=== PATIENT | male | born 1975 | race Caucasian/White ===

== ENCOUNTER → 2023-12-06 07:44 | Outpatient (REF) | payer BC, SELFPAY | LOC: HWRAD 07:44 | PROVIDERS: ATTENDING PHYSICIAN Physician Assistant Medical | DX: E01.0 Iodine-deficiency related diffuse (endemic) goiter (principal) | CPT/HCPCS: 76536 ==

== ENCOUNTER 2023-12-20 12:18 | Emergency (ER) | payer BC, SELFPAY ==
[2023-12-20 12:21] VITALS: BP 169/98
--- NOTE | 2023-12-20 12:56 | ED.GENMED ---
History of Present Illness
<Gregory Saldana DO - Last Filed: 12/24/23 06:31>
General
Chief Complaint: Chest Pain
Source: patient and spouse
Exam Limitations: none
Time Seen by Provider: 12/20/23 12:42
Nursing documentation reviewed up to this point in time: agreed with
History of Present Illness
History of Present Illness:
48-year-old male sharp right-sided abdominal pain onset yesterday, intermittent, no chest pain or shortness of breath, suffers of hypertension obesity has been on Zepbound lost about 30 pounds seen in urgent care referred here for evaluation no
prior abdominal surgeries still has his gallbladder and appendix,
Past History
<Gregory Saldana, DO - Last Filed: 12/24/23 06:31>
Past History
ED Past Medical History: HTN and Other (obesity-Zebound)
ED Past Surgical History: None; Negative Appendectomy, Bowel resection or Cholecystectomy
Social History
Tobacco: Non-smoker
Alcohol: None
Drug: None
Personal:
Living: with family
Employment: Employed ([employer])
Review of Systems
<Gregory Saldana, DO - Last Filed: 12/24/23 06:31>
Review of Systems
All Other Systems: Not applicable
Constitutional: Denies fever or fatigue
EENT: Reports no symptoms
Respiratory: Reports no symptoms; Denies cough or trouble breathing
Cardiac: Denies chest pain or palpitations
ABD/GI: Reports abdominal pain
: Reports no symptoms
Musculoskeletal: Reports no symptoms
Skin: Reports no symptoms
Phy Exam
<Gregory Saldana DO - Last Filed: 12/24/23 06:31>
Physical Exam
Physical Exam:
Physical Exam
General: no apparent distress, not acutely ill
Neck: No jaundice
Heart: s1/s2 regular rate and rhythm, no murmur. equal radial pulses.
Lungs: no acute respiratory distress. clear bilaterally
Abdomen: obese tender in the right upper abdomen
Neuro: alert and oriented. no focal neurological deficits
Skin: no rash
Psychiatric: well kept. interactive and cooperative
Extremities: no edema. no calf tenderness.
Scores
<Gregory Saldana, DO - Last Filed: 12/24/23 06:31>
Heart Score for Chest Pain Patients
STEMI patient?: Not applicable
History: Slightly or Non-Suspicious
ECG: Normal
Age: >45 - <65 years
Risk Factors: No Risk Factors
Troponin: </= Normal Limit
Heart Score for Chest Pain Patients: 1
Heart Score Risk: 2.5% MACE over next 6 weeks
Course
<Gregory Saldana, DO - Last Filed: 12/24/23 06:31>
Orders/Labs/Results
Orders:
Orders
12/20/23 12:20
EKG [Electrocardiogram (*1)] Urgent
Reason for Study: Chest Pain
EKG- Treatment ONCE
12/20/23 12:51
Cardiac Monitoring- Treatment ONCE
IV Insert/Care/Rem.- Treatment PRN
12/20/23 12:52
Ketorolac [Toradol] 30 mg IV NOW STA
CR Chest - 2 Views Urgent
Comment:
Reason For Exam: ruq poaoin
US Abdomen Complete/Upper Urgent
Comment:
Reason For Exam: ruq pain
12/20/23 13:48
Complete Blood Count/With Diff Urgent
Comprehensive Metabolic Panel Urgent
Lipase Urgent
12/20/23 15:21
CT Chest Pe Study Urgent
Comment:
Reason For Exam: right sided pain
Oxycodone/Acetaminophen [Percocet 5/325] 1 tablet PO NOW STA
12/20/23 16:00
Urinalysis Reflex To Culture Urgent
Date Specimen was Collected: 12/20/23
Time Specimen was Collected: 13:53
12/20/23 16:23
Ketorolac [Toradol] 30 mg .ROUTE .STK-MED ONE
12/20/23 20:09
Lidocaine [Lidocaine 4% Patch] 1 patch .ROUTE .STK-MED ONE
12/20/23 20:14
Lidocaine [Lidocaine 4% Patch] 1 patch TOPICAL ONCE ONE
Apply Lidocaine patch(s) to:: RUQ
Abnormal Lab Results
12/20/23
13:48
MPV 10.8 H fL
(7.4-10.4)
Lymphocytes % 18.3 L %
(20.5-51.1)
BUN 21 H mg/dl
(9-20)
12/20/23 13:48
12/20/23 13:48
Vital Signs
Initial and Last Documented VS:
Initial Vital Signs
Temp Pulse Resp BP Pulse Ox
98.1 F 69 16 169/98 96
12/20/23 12:21 12/20/23 12:21 12/20/23 12:21 12/20/23 12:21 12/20/23 12:21
Last Documented Vital Signs
Temp Pulse Resp BP Pulse Ox
98.1 F 64 17 130/73 98
12/20/23 12:21 12/20/23 17:25 12/20/23 17:25 12/20/23 17:25 12/20/23 17:25
<Edgar Strauss MD - Last Filed: 12/20/23 20:04>
Orders/Labs/Results
Orders:
Orders
12/20/23 12:20
EKG [Electrocardiogram (*1)] Urgent
Reason for Study: Chest Pain
EKG- Treatment ONCE
12/20/23 12:51
Cardiac Monitoring- Treatment ONCE
IV Insert/Care/Rem.- Treatment PRN
12/20/23 12:52
Ketorolac [Toradol] 30 mg IV NOW STA
CR Chest - 2 Views Urgent
Comment:
Reason For Exam: ruq poaoin
US Abdomen Complete/Upper Urgent
Comment:
Reason For Exam: ruq pain
12/20/23 13:48
Complete Blood Count/With Diff Urgent
Comprehensive Metabolic Panel Urgent
Lipase Urgent
12/20/23 15:21
CT Chest Pe Study Urgent
Comment:
Reason For Exam: right sided pain
Oxycodone/Acetaminophen [Percocet 5/325] 1 tablet PO NOW STA
12/20/23 16:00
Urinalysis Reflex To Culture Urgent
Date Specimen was Collected: 12/20/23
Time Specimen was Collected: 13:53
12/20/23 16:23
Ketorolac [Toradol] 30 mg .ROUTE .STK-MED ONE
12/20/23 20:09
Lidocaine [Lidocaine 4% Patch] 1 patch .ROUTE .STK-MED ONE
12/20/23 20:14
Lidocaine [Lidocaine 4% Patch] 1 patch TOPICAL ONCE ONE
Apply Lidocaine patch(s) to:: RUQ
Abnormal Lab Results
12/20/23
13:48
MPV 10.8 H fL
(7.4-10.4)
Lymphocytes % 18.3 L %
(20.5-51.1)
BUN 21 H mg/dl
(9-20)
12/20/23 13:48
12/20/23 13:48
Vital Signs
Initial and Last Documented VS:
Initial Vital Signs
Temp Pulse Resp BP Pulse Ox
98.1 F 69 16 169/98 96
12/20/23 12:21 12/20/23 12:21 12/20/23 12:21 12/20/23 12:21 12/20/23 12:21
Last Documented Vital Signs
Temp Pulse Resp BP Pulse Ox
98.1 F 64 17 130/73 98
12/20/23 12:21 12/20/23 17:25 12/20/23 17:25 12/20/23 17:25 12/20/23 17:25
<Gregory Saldana, DO - Last Filed: 12/24/23 06:31>
MDM/Problems Addressed
Differential Diagnosis Includes:
Biliary colic pancreatitis muscle strain less likely PE or pneumothorax doubt ACS
MDM/Problems Addressed:
Right upper abdominal
Chronic conditions affecting care:
Obesity Zepbound
Acute Exacerbation and/or Progression of Chronic Illness:
Obesity Zepbound
<Gregory Saldana, DO - Last Filed: 12/24/23 06:31>
*Critical Care Note
Total Time (30-74mins, 75-104mins- exclusive of procedures): Not Applicable
<Gregory Saldana, DO - Last Filed: 12/24/23 06:31>
Update Note
Update Note:
Update, labs noted ultrasound noted
Will check CT chest rule out PE
<Edgar Strauss MD - Last Filed: 12/20/23 20:04>
Update Note
Update Note:
Update, labs noted ultrasound noted
Will check CT chest rule out PE
UPDATE (Edgar Strauss MD)
I saw and examined patient after signout and reviewed all labs and imaging
Focused HPI: 48-year-old male presents to the emergency department for evaluation of right sided chest/upper abdominal pain. He says started yesterday evening has been waxing and waning since then. No nausea or vomiting. No clear triggering or
relieving factors. No shortness of breath or any other complaints. Denies trauma.
Physical exam: Awake alert not in distress. Hypertensive in triage normalized by my assessment. He has tenderness along his right lower ribs/upper abdomen. No peritoneal signs. No masses.
Medical Decision Makin-year-old male presents for evaluation of right sided chest/upper abdominal pain. EKG shows no acute ischemic changes, labs were sent off including a CBC and a CMP which were unremarkable. His urinalysis was negative for
infection or blood. Chest x-ray no acute disease. Upper abdominal ultrasound negative for gallstones or kidney stones. He was sent for a CTA to rule out PE�this was negative. Consistently reproducible to palpation suspect likely this may be
costochondritis/musculoskeletal pain. Spoke to patient at length think he is stable for discharge can follow-up with his PCP as an outpatient, trial Lidoderm, Tylenol/Motrin. He feels comfortable with this plan. We spoke about return precautions
and all questions answered.
ED Attending Note
<Gregory Saldana DO - Last Filed: 12/24/23 06:31>
-
Portions of this chart may have been created with voice recognition software.� Occasional wrong word or��sound alike� substitutions may have occurred due to the inherent limitations of voice recognition software.
Discharge Plan
Departure
Patient Disposition: Home (Routine Discharge)
Date of Disposition: 12/20/23
Time of Disposition: 20:03
Patient with high blood pressure during this ER visit?: No
Condition: Good
Discharge Problem:
Right upper quadrant abdominal pain
Instructions: Abdominal Pain, Adult ED
Prescriptions:
New
ibuprofen 600 mg tablet
600 mg PO Q6H PRN (Reason: Pain) Qty: 20 0RF
lidocaine [DermacinRx Lidocan] 5 % adhesive patch,medicated
1 patch topical DAILY Qty: 30 0RF
Referrals:
Nighat Fride PA [Family Provider] -
Activity Restrictions/Additional Instructions:
Thank you for visiting the Emergency Department at [facility].
1. Please schedule a follow up appointment as directed. Call first thing tomorrow morning to make an appointment.
2. If indicated, please take your medications as instructed and indicated on discharge paperwork.
3. If any of your symptoms do not improve, or persist, or become more severe within 6-12 hours, please return to the emergency department for further care.
4. Please return to the emergency department if you develop a headache, neck pain/stiffness, fever greater than 100.4F, chest pain, shortness of breath, persistent nausea, vomiting, slurred speech, difficulty walking, numbness/tingling, weakness,
signs of infection or any other symptoms that are worrisome to you.
Please call [phone] if you have any questions.
Interventions
Interventions:
*Risk Screen - Suicide Last Done: 12/20/23 12:21
*General Assessment Last Done: 12/20/23 12:21
*Neglect/Abuse Screening Last Done: 12/20/23 12:21
ED- Fall Risk Assessment Last Done: 12/20/23 19:24
*ED COVID-19 Vaccine History Last Done: 12/20/23 18:07
*Nursing Disposition Last Done: 12/20/23 20:18
ED- Cardiac Assessment Last Done: 12/20/23 14:00
Discharge Date and Time
Discharge Date/Time: 12/20/23 20:18
Print Language: ITALIAN
[2023-12-20 13:55] VITALS: BP 123/70
[2023-12-20 13:56] VITALS: BMI 46.5
[2023-12-20] MEDS: TORADOL IV (13:57)
[2023-12-20 14:09] LABS: % Basophils 0.5 % (0-2); % Eosinophils 1.6 % (0-6); % Immature Granulocytes 0.5 % (0-0.5); % Lymphocytes 18.3 % (20.5-51.1); % Monocytes 8.5 % (1.7-9.3); % Neutrophils 70.6 % (42.2-75.2); Absolute Eosinophils 0.1 10^3/uL (0-0.7); Absolute Lymphocytes 1.2 10^3/uL (1.2-3.4); Absolute Monocytes 0.5 10^3/uL (0.1-0.6); Absolute Neutrophils 4.4 10^3/uL (1.4-6.5); Hematocrit 45.2 % (39.0-52.0); Hemoglobin 15.8 g/dL (13.0-18.0); Mean Corpuscular Hgb 30.3 pg (27.0-31.0); Mean Corpuscular Volume 86.6 fL (80.0-94.0); Mean Platelet Volume 10.8 fL (7.4-10.4); Nucleated Red Blood Cells % 0 % (-); Platelet Count 139 10^3/uL (130-400); Red Blood Cell Count 5.22 10^6/uL (4.70-6.10); Red Cell Dist. Width 12.6 % (11.5-14.5); White Blood Cell Count 6.3 10^3/uL (4.8-10.8)
[2023-12-20 14:33] LABS: ALT (SGPT) 29 U/L (0-50); AST (SGOT) 33 U/L (17-59); Albumin 4.4 g/dl (3.5-5.0); Alkaline Phosphatase 62 U/L (38-126); Blood Urea Nitrogen 21 mg/dl (9-20); Calcium 9.1 mg/dl (8.4-10.2); Carbon Dioxide 25 mmol/L (22-30); Chloride 103 mmol/L (98-107); Estimated Creatinine Clearance > 125 ml/min; Glucose 84 mg/dl (70-99); Lipase 110 U/L (23-300); Potassium 4.6 mmol/L (3.5-5.1); Sodium 140 mmol/L (135-145); Total Protein 6.4 g/dl (6.3-8.2); eGFR > 60.00
[2023-12-20 14:58] VITALS: BP 129/74
[2023-12-20] MEDS: TORADOL 30 MG IV (15:51)
[2023-12-20 15:55] VITALS: BP 124/69
[2023-12-20 16:12] LABS: Urine Albumin Negative (Neg - Trace); Urine Bilirubin Negative (Negative); Urine Character Clear (Clear); Urine Color Yellow; Urine Glucose Negative (Negative); Urine Ketone Negative (Negative); Urine Leukocyte Negative (Negative); Urine Nitrite Negative (Negative); Urine Occult Blood Negative (Negative); Urine Specific Gravity 1.025 (<1.030); Urine Urobilinogen Negative (Neg - 1+)
[2023-12-20 17:25] VITALS: BP 130/73
[2023-12-20] MEDS: LIDOCAINE 4% PATCH 1 PATCH TOPICAL (20:15)
== END 2023-12-20 20:18 | disposition home or self-care (01) ==
LOC: EMR 12:18
PROVIDERS: EMERGENCY PHYSICIAN Emergency Medicine; FAMILY PHYSICIAN Physician Assistant Medical
DX: R10.11 Right upper quadrant pain (principal); R51.9 Headache, unspecified; I10 Essential (primary) hypertension; E66.9 Obesity, unspecified; Z88.0 Allergy status to penicillin
CPT/HCPCS: 99285; 96374; 71046; 71275; 76700; 80053; 81003; 83690; 85025; 93005; Q9967